=== PATIENT | female | born 1970 | race Caucasian/White ===

== ENCOUNTER 2022-06-01 13:11 | Emergency (ER) | payer OTHER ==
[~2022-06-01] VITALS: Ht 170.1 cm; Wt 62.6 kg
[2022-06-01] MEDS ORDERED: EFFEXOR XR37.5 M1 PO (13:31)
[2022-06-01] MEDS ORDERED: CEPHALEXIN500 M1 PO (15:10)
== END 2022-06-01 15:38 | disposition home or self-care (01) ==
LOC: ED 13:11
DX: S80.11XA Contusion of right lower leg, initial encounter (principal); Z98.890 Other specified postprocedural states; V23.59XA Other motorcycle passenger injured in collision with car, pick-up truck or van in traffic accident, initial encounter; Y93.89 Activity, other specified; Y92.410 Unspecified street and highway as the place of occurrence of the external cause; Y99.8 Other external cause status

== ENCOUNTER → 2023-01-17 | Outpatient (CLI) | payer OTHER ==
[~2023-01-17] MED LIST: CEPHALEXIN500 M1 PO; EFFEXOR XR37.5 M1 PO
== END | disposition home or self-care (01) ==
LOC: ORTHO 03:30
PROVIDERS: ATTEND Orthopaedic Surgery
DX: M19.042 Primary osteoarthritis, left hand (principal); M19.041 Primary osteoarthritis, right hand